=== PATIENT | male | born 1980 | race Caucasian/White ===

== ENCOUNTER 2019-02-23 18:53 | Emergency (ER) | payer OTHER | END 2019-02-23 19:41 | disposition left against medical advice (07) | LOC: ERS 18:53 | DX: Z53.21 Procedure and treatment not carried out due to patient leaving prior to being seen by health care provider (principal) ==

== ENCOUNTER 2020-05-21 21:40 | Inpatient (IN) | payer OTHER ==
[~2020-05-21 21:40] MED LIST: Iopamidol-370 76% 500 ML 1 ML ONE
[2020-05-21] MEDS ORDERED: Digoxin 0.5 MG/2 ML AMP ONE (22:03)
[2020-05-21] MEDS ORDERED: HYDROmorphone 0.5 MG/0.5 ML SYRINGE ONE ×3 (22:03→22:46)
[2020-05-21 22:17] LABS: Prothrombin Time 12.7 sec (12.0-14.7)
[2020-05-21 22:18] LABS: PTT 20.2 sec (22.9-36.1)
[2020-05-21] MEDS ORDERED: Boostrix 0.5 ML VIAL ONE (22:18)
[2020-05-21] MEDS ORDERED: Cefepime 2 GM VIAL ONE (22:18)
[2020-05-21 22:22] LABS: Hemoglobin 10.6 g/dL (14.0-18.0); Mean Corpuscular HGB CONC 33.8 g/dL (32.0-36.0); Mean Corpuscular Hemoglobin 32.3 pg (27.0-31.0); Mean Corpuscular Volume 95.6 fL (78.0-98.0); Mean Platelet Volume 7.8 fL (7.4-10.4); Platelet Count 197 thou/uL (130-400); RBC Distribution Width 11.8 % (11.5-14.5); Red Blood Cell (RBC) Count 3.29 mill/uL (4.70-6.10); White Blood Cell (WBC) Count 13.6 thou/uL (4.8-10.8)
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
[2020-05-21 22:29] LABS: Acetaminophen Less than 6.0 mcg/mL (10.0-30.0); Alcohol 67 mg/dL (Less than 10); CK (CPK) 94 U/L (30-200); Salicylate Less than 8.0 mg/dL (15.0-30.0)
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
[2020-05-21 22:34] LABS: Magnesium 0.7 mg/dL (1.6-2.6)
[2020-05-21 22:35] LABS: Band 2 % (5-11); Eosinophils 1 % (0-10); Lymphocytes 52 % (21-51); MDiff Complete? YES; Monocytes 5 % (0-10); Neutrophil 40 % (42-75); Platelet Morphology Comment Appears Adequate
[2020-05-21 22:47] LABS: ALT (SGPT) 38 U/L (8-55); AST (SGOT) 26 U/L (5-34); Albumin 4.5 g/dL (3.5-5.0); Alkaline Phosphatase 43 U/L (40-110); Anion Gap 19 mmol/L (10-20); BUN (Urea Nitrogen) 15 mg/dL (8.9-20.6); Bilirubin, Total 0.4 mg/dL (0.2-1.2); Calc. Creatinine Clearance 0 mL/min (70-130); Calcium 8.6 mg/dL (7.8-10.44); Carbon Dioxide 17 mmol/L (22-29); Chloride 105 mmol/L (98-107); Estimated GFR-MDRD 62; Globulin 2.2 g/dL (2.4-3.5); Glucose 148 mg/dL (70-105); Potassium 3.2 mmol/L (3.5-5.1); Protein, Total 6.7 g/dL (6.0-8.3); Sodium 138 mmol/L (136-145)
[2020-05-21] MEDS ORDERED: Lorazepam 2 MG/ML VIAL ONE (23:37)
[2020-05-21] MEDS ORDERED: Ketamine 50 MG/ML (10ML VIAL) ONE (23:39)
[2020-05-22] MEDS ORDERED: Lidocaine 1% PF 5 ML VIAL ONE ×2 (00:09→11:07)
[2020-05-22 00:33] LABS: Bilirubin Negative (Negative); Blood, Urine Negative (Negative); Clarity Clear (Clear); Glucose, Urine (Dipstick) Normal (Negative); Ketone, Urine Negative (Negative); Leukocyte Negative Leu/uL (Negative); Nitrite Negative (Negative); Protein, Urine (Dipstick) Negative (Neg-Trace); Urobilinogen Normal mg/dL (Less than 2); pH, Urine 5.5 (5.0-9.0)
[2020-05-22 00:35] LABS: Amphetamine Not Detected (NotDetected); Barbiturates Screen Not Detected (NotDetected); Benzodiazepine Screen Not Detected (NotDetected); Cocaine Metabolite Screen Not Detected (NotDetected); Medtox Control Line Valid? VALID (VALID); Medtox Reader # READER 4; Methadone Not Detected (NotDetected); Methamphetamine Not Detected (NotDetected); Opiate Screen Detected (NotDetected); Oxycodone Screen Not Detected (NotDetected); Phencyclidine (PCP) Not Detected (NotDetected); THC/Cannabinoid Screen Not Detected (NotDetected); Tricyclic Screen Not Detected (NotDetected)
[2020-05-22 00:36] LABS: Specific Gravity, Urine 1.057 (1.002-1.036)
[2020-05-22] MEDS ORDERED: Midazolam HCl 2 mg/2 ml Vial ONE ×2 (01:18→13:53)
[2020-05-22] MEDS ORDERED: Ketamine 50 MG/ML (10ML VIAL) ONE (01:28)
[2020-05-22] MEDS ORDERED: Dextrose 50% Abboject 50 ML SYRINGE SLOW IVP PRN (02:22)
[2020-05-22] MEDS ORDERED: hydrALAZINE 20 MG/ML VIAL SLOW IVP PRN (02:22)
[2020-05-22] MEDS ORDERED: Ondansetron PF 4 MG/2 ML Vial IVP PRN (02:22)
[2020-05-22] MEDS ORDERED: Dextrose 5% in Water 1,000 ML IV PRN (02:22)
[2020-05-22] MEDS ORDERED: Morphine 2 MG/ML VIAL SLOW IVP PRN ×2 (02:22→19:21)
[2020-05-22] MEDS ORDERED: Magnesium Sulfate 4 GM in Sodium Chloride 0.9% 250 ML 250 ML IVPB SCH (03:00)
[2020-05-22] MEDS ORDERED: Potassium Phosphate 30 MMOL in Sodium Chloride 0.9% 500 ML IVPB SCH (03:00)
[2020-05-22] MEDS: Acetaminophen 500 MG TAB PO SCH ×4 (03:25→23:16)
[2020-05-22] MEDS: traMADol HCl 50 MG TAB PO SCH ×3 (03:25→18:34)
[2020-05-22] MEDS: Sodium Chloride 0.9% 1,000 ML IV SCH ×3 (03:26→22:15)
[2020-05-22 03:56] VITALS: BMI 34.7
[2020-05-22] MEDS: Cyclobenzaprine 10 MG TAB PO PRN (04:32)
[2020-05-22 05:07] LABS: Phosphorus 2.3 mg/dL (2.3-4.7)
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
[2020-05-22] MEDS: Ketorolac Tromethamine 30 MG/ML VIAL IVP SCH ×4 (05:43→23:16)
[2020-05-22] MEDS: Oxazepam 10 MG CAP PO SCH ×3 (05:44→21:32)
[2020-05-22 06:57] LABS: Hemoglobin 14.3 g/dL (14.0-18.0); Mean Corpuscular HGB CONC 32.3 g/dL (32.0-36.0); Mean Corpuscular Hemoglobin 30.2 pg (27.0-31.0); Mean Corpuscular Volume 93.6 fL (78.0-98.0); Mean Platelet Volume 7.9 fL (7.4-10.4); Platelet Count 235 thou/uL (130-400); RBC Distribution Width 12.1 % (11.5-14.5); Red Blood Cell (RBC) Count 4.72 mill/uL (4.70-6.10); White Blood Cell (WBC) Count 10.9 thou/uL (4.8-10.8)
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
--- NOTE | 2020-05-22 07:34 | RAD ---
LEFT WRIST 2 VIEWS: DATE: 05/21/2020. HISTORY: Injury, trauma, and pain. FINDINGS: No displaced fracture or dislocation. No widening of the scapholunate interval. IMPRESSION: No acute fracture or evidence of dislocation. If symptoms persist, followup imaging in 7-10 days wit h a full left wrist series advised. Evaluation of the left wrist is limited as no lateral view is pr ovided. Only 2 views are provided on this exam. POS: OFF
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
[2020-05-22] MEDS: Folic Acid 1 MG TAB PO SCH (08:04)
[2020-05-22] MEDS: Multivitamin W/ Minerals 1 TAB PO SCH (08:04)
[2020-05-22] MEDS: Senokot S 8.6-50 MG TAB PO SCH ×2 (08:04→21:22)
[2020-05-22] MEDS: Bacitracin 1 PK TOP SCH ×3 (08:04→21:23)
[2020-05-22] MEDS: Polyethylene Glycol 3350 17 GM Packet PO SCH (08:04)
[2020-05-22] MEDS: Silver Sulfadiazine 50 GM TUBE TOP SCH ×2 (08:05→21:23)
[2020-05-22] MEDS: Thiamine 100 MG TAB PO SCH (08:05)
[2020-05-22] MEDS: Gabapentin 300 MG CAP PO SCH ×3 (08:05→21:23)
[2020-05-22 08:11] LABS: Lactic Acid 2.9 mmol/L (0.5-2.2)
[2020-05-22] MEDS ORDERED: Sodium Chloride 0.9% 1,000 ML IV SCH (08:15)
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
[2020-05-22] MEDS: Morphine 4 MG/ML VIAL SLOW IVP PRN ×2 (09:38→20:27)
[2020-05-22] MEDS ORDERED: PROPOFOL 200 MG/20 ML VIAL ONE (11:07)
[2020-05-22] MEDS ORDERED: Dexamethasone 20 MG/5 ML VIAL ONE (11:07)
[2020-05-22] MEDS ORDERED: Ondansetron PF 4 MG/2 ML Vial ONE (11:07)
[2020-05-22] MEDS ORDERED: PHENYLEPHRINE-NS 100 MCG/ML 10 ML SYRINGE ONE (11:07)
[2020-05-22 12:50] LABS: SARS-CoV-2 MS2 Positive; SARS-CoV-2 N Gene Negative; SARS-CoV-2 S Gene Negative; SARS-CoV-2 by NAA Not Detected (NotDetected); SARS-CoV-2 orf1ab Negative
[2020-05-22] MEDS ORDERED: Fentanyl 100 MCG/2 ML VIAL ONE ×5 (13:53→19:41)
[2020-05-22] MEDS ORDERED: Lidocaine 1% (PF) 30 ML VIAL ONE (15:16)
[2020-05-22] MEDS ORDERED: Bupivacaine 0.25% HCL 30 ML VIAL ONE (15:26)
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
[2020-05-22] MEDS ORDERED: Promethazine HCl 25 MG/ML VIAL IM PRN (17:26)
[2020-05-22] MEDS ORDERED: HYDROmorphone 2 MG/ML VIAL SLOW IVP PRN (17:26)
[2020-05-22] MEDS ORDERED: Promethazine HCl 25 MG/ML VIAL SLOW IVP PRN (17:26)
[2020-05-22] MEDS ORDERED: Ondansetron HCl/PF 4 MG/2 ML Vial IVP PRN (17:26)
[2020-05-22] MEDS ORDERED: HYDROcodone/Acetaminophen 5/325 mg Tablet PO PRN (19:30)
[2020-05-22] MEDS ORDERED: HYDROmorphone 0.5 MG/0.5 ML SYRINGE ONE (19:31)
[2020-05-22] MEDS: HYDROcodone/Acetaminophen 5/325 mg Tablet PO PRN (20:28)
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
[2020-05-22] MEDS ORDERED: ceFAZolin 1 GM/D5W 1 GM in Premix Bag 1 BAG IVPB SCH (22:00)
[2020-05-22] MEDS: CEFAZOLIN 2 GM in Premix Bag 1 BAG IVPB SCH (23:15)
[2020-05-23] MEDS: Sodium Chloride 0.9% 1,000 ML IV SCH ×3 (04:36→23:20)
[2020-05-23] MEDS: Oxazepam 10 MG CAP PO SCH ×3 (05:30→20:50)
[2020-05-23] MEDS: HYDROcodone/Acetaminophen 5/325 mg Tablet PO PRN ×4 (05:31→23:20)
[2020-05-23] MEDS: Ketorolac Tromethamine 30 MG/ML VIAL IVP SCH (05:31)
[2020-05-23] MEDS: Acetaminophen 500 MG TAB PO SCH ×2 (06:01→11:38)
[2020-05-23] MEDS: CEFAZOLIN 2 GM in Premix Bag 1 BAG IVPB SCH (08:21)
[2020-05-23] MEDS: Multivitamin W/ Minerals 1 TAB PO SCH (08:24)
[2020-05-23] MEDS: Bacitracin 1 PK TOP SCH ×3 (08:24→21:00)
[2020-05-23] MEDS: Polyethylene Glycol 3350 17 GM Packet PO SCH (08:24)
[2020-05-23] MEDS: Gabapentin 300 MG CAP PO SCH ×3 (08:25→20:50)
[2020-05-23] MEDS: Folic Acid 1 MG TAB PO SCH (08:25)
[2020-05-23] MEDS: Famotidine 20 MG TAB PO SCH ×2 (08:25→20:49)
[2020-05-23] MEDS: Senokot S 8.6-50 MG TAB PO SCH ×3 (08:25→20:50)
[2020-05-23] MEDS: Thiamine 100 MG TAB PO SCH (08:26)
[2020-05-23] MEDS: Silver Sulfadiazine 50 GM TUBE TOP SCH ×2 (08:26→21:04)
[2020-05-23] MEDS: Morphine 4 MG/ML VIAL SLOW IVP PRN ×2 (08:51→15:02)
[2020-05-23 09:20] LABS: #Lymphocytes 1.1 thou/uL (1.20-3.40); #Monocytes 0.6 thou/uL (0.11-0.59); #Neutrophils 4.8 thou/uL (1.40-6.50); %Lymphocytes 17.5 % (21.0-51.0); %Monocytes 8.5 % (0.0-10.0); %Neutrophils 73.9 % (42.0-75.0); Hemoglobin 12.1 g/dL (14.0-18.0); Mean Corpuscular HGB CONC 32.5 g/dL (32.0-36.0); Mean Corpuscular Hemoglobin 31.8 pg (27.0-31.0); Mean Corpuscular Volume 97.9 fL (78.0-98.0); Mean Platelet Volume 7.8 fL (7.4-10.4); Platelet Count 185 thou/uL (130-400); RBC Distribution Width 12.2 % (11.5-14.5); Red Blood Cell (RBC) Count 3.81 mill/uL (4.70-6.10); White Blood Cell (WBC) Count 6.4 thou/uL (4.8-10.8)
[2020-05-23 09:53] LABS: Anion Gap 14 mmol/L (10-20); BUN (Urea Nitrogen) 13 mg/dL (8.9-20.6); Calc. Creatinine Clearance 145 mL/min (70-130); Calcium 7.7 mg/dL (7.8-10.44); Carbon Dioxide 21 mmol/L (22-29); Chloride 104 mmol/L (98-107); Estimated GFR-MDRD 79; Glucose 132 mg/dL (70-105); Magnesium 2.3 mg/dL (1.6-2.6); Phosphorus 1.6 mg/dL (2.3-4.7); Potassium 4.7 mmol/L (3.5-5.1); Sodium 134 mmol/L (136-145)
--- NOTE | 2020-05-23 12:22 | EKG ---
Test Reason : Blood Pressure : / mmHG Vent. Rate : 087 BPM Atrial Rate : 087 BPM P-R Int : 160 ms QRS Dur : 074 ms QT Int : 366 ms P-R-T Axes : 074 060 034 degrees QTc Int : 440 ms Normal sinus rhythm Nonspecific T wave abnormality Abnormal ECG Confirmed by EASTON INMAN ([id number]), scientific editor EMANUEL LORENZ ([id number]) on 05/23/2020 12:22:06 PM Referred By: Confirmed By:EASTON INMAN
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
[2020-05-23] MEDS: Piperacillin/Tazobactam 4.5 GM in Sodium Chloride 0.9% 100 ML IVPB SCH ×2 (15:36→21:00)
[2020-05-23] MEDS ORDERED: Morphine 4 MG/ML VIAL SLOW IVP PRN (16:33)
[2020-05-23] MEDS ORDERED: traMADol HCl 50 MG TAB PO PRN (16:33)
[2020-05-23] MEDS: Ibuprofen 200 MG TAB PO SCH ×2 (17:31→20:50)
[2020-05-23] MEDS: traMADol HCl 50 MG TAB PO SCH ×2 (17:32→23:21)
[2020-05-23] MEDS: Acetaminophen 325 MG TAB PO SCH ×2 (17:37→23:20)
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
[2020-05-23] MEDS: cloNIDine 0.1 MG TAB PO SCH (20:50)
[2020-05-24] MEDS: Sodium Chloride 0.9% 1,000 ML IV SCH (05:32)
[2020-05-24] MEDS: Piperacillin/Tazobactam 4.5 GM in Sodium Chloride 0.9% 100 ML IVPB SCH ×3 (05:35→21:35)
[2020-05-24] MEDS: Ibuprofen 200 MG TAB PO SCH ×3 (05:36→18:51)
[2020-05-24] MEDS: Acetaminophen 325 MG TAB PO SCH ×3 (05:37→18:51)
[2020-05-24] MEDS: Oxazepam 10 MG CAP PO SCH ×3 (05:37→21:08)
[2020-05-24] MEDS: traMADol HCl 50 MG TAB PO SCH ×3 (05:37→18:52)
[2020-05-24] MEDS: HYDROcodone/Acetaminophen 5/325 mg Tablet PO PRN ×3 (06:18→16:52)
[2020-05-24 07:46] LABS: #Eosinphils 0.1 thou/uL (0.0-0.7); #Lymphocytes 1.6 thou/uL (1.20-3.40); #Monocytes 0.3 thou/uL (0.11-0.59); %Basophils 0.4 % (0.0-1.0); %Eosinophils 1.4 % (0.0-10.0); %Lymphocytes 40.6 % (21.0-51.0); %Neutrophils 49.7 % (42.0-75.0); Hemoglobin 10.3 g/dL (14.0-18.0); Mean Corpuscular HGB CONC 32.5 g/dL (32.0-36.0); Mean Corpuscular Hemoglobin 31.4 pg (27.0-31.0); Mean Corpuscular Volume 96.8 fL (78.0-98.0); Mean Platelet Volume 8.3 fL (7.4-10.4); Platelet Count 160 thou/uL (130-400); RBC Distribution Width 12.1 % (11.5-14.5); Red Blood Cell (RBC) Count 3.27 mill/uL (4.70-6.10)
[2020-05-24 07:47] LABS: Anion Gap 12 mmol/L (10-20); BUN (Urea Nitrogen) 12 mg/dL (8.9-20.6); Calc. Creatinine Clearance 159 mL/min (70-130); Calcium 7.8 mg/dL (7.8-10.44); Carbon Dioxide 24 mmol/L (22-29); Chloride 106 mmol/L (98-107); Estimated GFR-MDRD 88; Glucose 126 mg/dL (70-105); Potassium 4.1 mmol/L (3.5-5.1); Sodium 138 mmol/L (136-145)
[2020-05-24 07:56] LABS: Phosphorus 1.5 mg/dL (2.3-4.7)
[2020-05-24] MEDS: Polyethylene Glycol 3350 17 GM Packet PO SCH (08:55)
[2020-05-24] MEDS: cloNIDine 0.1 MG TAB PO SCH ×2 (08:55→21:11)
[2020-05-24] MEDS: Folic Acid 1 MG TAB PO SCH (08:55)
[2020-05-24] MEDS: Senokot S 8.6-50 MG TAB PO SCH ×2 (08:56→21:08)
[2020-05-24] MEDS: Silver Sulfadiazine 50 GM TUBE TOP SCH ×2 (08:56→21:09)
[2020-05-24] MEDS: Multivitamin W/ Minerals 1 TAB PO SCH (08:56)
[2020-05-24] MEDS: Famotidine 20 MG TAB PO SCH ×2 (08:56→21:08)
[2020-05-24] MEDS: Thiamine 100 MG TAB PO SCH (08:56)
[2020-05-24] MEDS: Gabapentin 300 MG CAP PO SCH ×3 (08:57→21:08)
[2020-05-24] MEDS: Bacitracin 1 PK TOP SCH ×3 (08:57→21:09)
[2020-05-24] MEDS: HYDROcodone/Acetaminophen 5/325 mg Tablet PO SCH ×4 (10:57→21:07)
[2020-05-24] MEDS ORDERED: Sodium Phosphate 45 MMOL in Sodium Chloride 0.9% 250 ML 250 ML IVPB SCH (12:30)
[2020-05-24] MEDS: Heparin 5,000 UNITS/ML VIAL SC SCH ×2 (14:10→21:08)
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
[2020-05-25] MEDS: Acetaminophen 325 MG TAB PO SCH ×4 (00:28→17:34)
[2020-05-25] MEDS: Ibuprofen 200 MG TAB PO SCH ×4 (00:29→17:34)
[2020-05-25] MEDS: traMADol HCl 50 MG TAB PO SCH ×4 (00:30→17:34)
[2020-05-25] MEDS: HYDROcodone/Acetaminophen 5/325 mg Tablet PO SCH ×6 (00:36→21:27)
[2020-05-25] MEDS: Cyclobenzaprine 10 MG TAB PO PRN (04:16)
[2020-05-25 05:06] LABS: #Eosinphils 0.1 thou/uL (0.0-0.7); #Lymphocytes 1.5 thou/uL (1.20-3.40); #Monocytes 0.3 thou/uL (0.11-0.59); #Neutrophils 2.1 thou/uL (1.40-6.50); %Basophils 0.2 % (0.0-1.0); %Lymphocytes 36.8 % (21.0-51.0); %Monocytes 7.7 % (0.0-10.0); %Neutrophils 53.3 % (42.0-75.0); Hemoglobin 10.4 g/dL (14.0-18.0); Mean Corpuscular Hemoglobin 31.8 pg (27.0-31.0); Mean Corpuscular Volume 96.4 fL (78.0-98.0); Mean Platelet Volume 8.1 fL (7.4-10.4); Platelet Count 196 thou/uL (130-400); RBC Distribution Width 12.1 % (11.5-14.5); Red Blood Cell (RBC) Count 3.28 mill/uL (4.70-6.10)
[2020-05-25 05:36] LABS: Anion Gap 12 mmol/L (10-20); BUN (Urea Nitrogen) 11 mg/dL (8.9-20.6); Calc. Creatinine Clearance 152 mL/min (70-130); Calcium 8.1 mg/dL (7.8-10.44); Carbon Dioxide 22 mmol/L (22-29); Chloride 105 mmol/L (98-107); Estimated GFR-MDRD 84; Glucose 120 mg/dL (70-105); Magnesium 1.9 mg/dL (1.6-2.6); Phosphorus 2.3 mg/dL (2.3-4.7); Potassium 4.2 mmol/L (3.5-5.1); Sodium 135 mmol/L (136-145)
[2020-05-25] MEDS: Piperacillin/Tazobactam 4.5 GM in Sodium Chloride 0.9% 100 ML IVPB SCH ×3 (05:54→21:44)
[2020-05-25] MEDS: Senokot S 8.6-50 MG TAB PO SCH ×2 (09:26→21:24)
[2020-05-25] MEDS: Polyethylene Glycol 3350 17 GM Packet PO SCH (09:26)
[2020-05-25] MEDS: Multivitamin W/ Minerals 1 TAB PO SCH (09:26)
[2020-05-25] MEDS: Thiamine 100 MG TAB PO SCH (09:26)
[2020-05-25] MEDS: Famotidine 20 MG TAB PO SCH ×2 (09:27→21:31)
[2020-05-25] MEDS: Folic Acid 1 MG TAB PO SCH (09:27)
[2020-05-25] MEDS: cloNIDine 0.1 MG TAB PO SCH ×2 (09:27→21:24)
[2020-05-25] MEDS: Gabapentin 300 MG CAP PO SCH ×3 (10:02→21:27)
[2020-05-25] MEDS: Oxazepam 10 MG CAP PO SCH ×2 (10:51→21:27)
[2020-05-25] MEDS: Bacitracin 1 PK TOP SCH ×3 (11:22→21:27)
[2020-05-25] MEDS: Silver Sulfadiazine 50 GM TUBE TOP SCH ×2 (11:23→21:32)
[2020-05-25] MEDS ORDERED: PROPOFOL 200 MG/20 ML VIAL ONE (12:14)
[2020-05-25] MEDS ORDERED: Ketorolac Tromethamine 30 MG/ML VIAL ONE (12:14)
[2020-05-25] MEDS ORDERED: Lidocaine 1% PF 5 ML VIAL ONE (12:14)
[2020-05-25] MEDS ORDERED: Glycopyrrolate 0.2 MG/ML 5 ML SYRINGE ONE (12:14)
[2020-05-25] MEDS ORDERED: Dexamethasone 20 MG/5 ML VIAL ONE (12:14)
[2020-05-25] MEDS ORDERED: Rocuronium Bromide 10 MG/ML (10ML VIAL) ONE (12:14)
[2020-05-25] MEDS ORDERED: Ondansetron PF 4 MG/2 ML Vial ONE (12:14)
[2020-05-25] MEDS ORDERED: Fentanyl 100 MCG/2 ML VIAL ONE ×3 (14:03→14:30)
[2020-05-25] MEDS ORDERED: Bupivacaine 0.25% HCL 30 ML VIAL ONE (14:09)
[2020-05-25] MEDS ORDERED: Bacitracin Zinc Ointment 30 gm TUBE ONE (14:09)
[2020-05-25] MEDS ORDERED: Lidocaine 1% w/Epinephrine 1:100K 20 ML VIAL ONE (14:09)
[2020-05-25] MEDS ORDERED: HYDROmorphone 0.5 MG/0.5 ML SYRINGE ONE (14:16)
[2020-05-25] MEDS ORDERED: Midazolam HCl 2 mg/2 ml Vial ONE (14:30)
[2020-05-25] MEDS ORDERED: SUGAMMADEX SODIUM 500 MG/5 ML VIAL ONE (15:56)
[2020-05-25] MEDS ORDERED: Morphine 4 MG/ML VIAL SLOW IVP PRN ×2 (17:24→21:08)
[2020-05-25] MEDS ORDERED: HYDROcodone/Acetaminophen 5/325 mg Tablet PO PRN ×2 (17:25→21:10)
[2020-05-25] MEDS: Heparin 5,000 UNITS/ML VIAL SC SCH (21:28)
[2020-05-26] MEDS: traMADol HCl 50 MG TAB PO SCH ×5 (00:59→23:58)
[2020-05-26] MEDS: Acetaminophen 325 MG TAB PO SCH ×4 (00:59→18:01)
[2020-05-26] MEDS: Ibuprofen 200 MG TAB PO SCH ×5 (01:00→23:57)
[2020-05-26] MEDS: HYDROcodone/Acetaminophen 5/325 mg Tablet PO SCH ×6 (01:00→21:14)
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
[2020-05-26] MEDS: Piperacillin/Tazobactam 4.5 GM in Sodium Chloride 0.9% 100 ML IVPB SCH ×3 (06:02→21:30)
[2020-05-26 06:55] LABS: #Lymphocytes 1.2 thou/uL (1.20-3.40); #Monocytes 0.3 thou/uL (0.11-0.59); #Neutrophils 3.3 thou/uL (1.40-6.50); %Basophils 0.1 % (0.0-1.0); %Eosinophils 0.2 % (0.0-10.0); %Lymphocytes 24.6 % (21.0-51.0); %Monocytes 6.6 % (0.0-10.0); %Neutrophils 68.4 % (42.0-75.0); Hemoglobin 10.7 g/dL (14.0-18.0); Mean Corpuscular HGB CONC 32.2 g/dL (32.0-36.0); Mean Corpuscular Hemoglobin 31.4 pg (27.0-31.0); Mean Corpuscular Volume 97.5 fL (78.0-98.0); Platelet Count 262 thou/uL (130-400); RBC Distribution Width 11.9 % (11.5-14.5); Red Blood Cell (RBC) Count 3.42 mill/uL (4.70-6.10); White Blood Cell (WBC) Count 4.8 thou/uL (4.8-10.8)
[2020-05-26 07:13] LABS: Anion Gap 13 mmol/L (10-20); BUN (Urea Nitrogen) 11 mg/dL (8.9-20.6); Calc. Creatinine Clearance 151 mL/min (70-130); Calcium 8.7 mg/dL (7.8-10.44); Carbon Dioxide 25 mmol/L (22-29); Chloride 104 mmol/L (98-107); Estimated GFR-MDRD 83; Glucose 137 mg/dL (70-105); Magnesium 2.1 mg/dL (1.6-2.6); Sodium 137 mmol/L (136-145)
[2020-05-26 07:19] LABS: Phosphorus 3.2 mg/dL (2.3-4.7)
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
[2020-05-26] MEDS: Senokot S 8.6-50 MG TAB PO SCH ×2 (09:06→21:16)
[2020-05-26] MEDS: Polyethylene Glycol 3350 17 GM Packet PO SCH (09:07)
[2020-05-26] MEDS: Folic Acid 1 MG TAB PO SCH (09:07)
[2020-05-26] MEDS: Thiamine 100 MG TAB PO SCH (09:08)
[2020-05-26] MEDS: Famotidine 20 MG TAB PO SCH ×2 (09:08→21:15)
[2020-05-26] MEDS: Oxazepam 10 MG CAP PO SCH ×2 (09:09→20:20)
[2020-05-26] MEDS: Gabapentin 300 MG CAP PO SCH ×3 (09:09→20:21)
[2020-05-26] MEDS: cloNIDine 0.1 MG TAB PO SCH (09:09)
[2020-05-26] MEDS: Bacitracin 1 PK TOP SCH ×3 (09:09→20:19)
[2020-05-26] MEDS: Multivitamin W/ Minerals 1 TAB PO SCH (09:09)
[2020-05-26] MEDS: Heparin 5,000 UNITS/ML VIAL SC SCH ×3 (09:09→21:31)
--- NOTE | 2020-05-26 09:26 | PRG ---
DATE OF SERVICE: 05/25/2020 SUBJECTIVE: The patient is seen today postoperative day #3 status post incision, drainage, and debridement of left elbow and application of a VAC dressing as well as amputation of left ring finger and splinting for left small finger phalanx fracture. The patient's pain is relatively well controlled. He denies any fevers. He denies any numbness or tingling in the fingers. PHYSICAL EXAMINATION: There is a bandage over the left upper extremity. The patient appears to be comfortable and lying in bed. ASSESSMENT AND PLAN: Postoperative day #3 status incision and drainage, debridement, application of wound VAC dressing of left elbow as well as amputation of left right finger and splinting of left small finger for treatment of left phalangeal fracture. Today, all risks and goals associated with surgery were discussed by me with the patient. The patient's daughter was also present. This is plan to take back for VAC dressing change as well as further debridement and washout of this left elbow wound, potentially his right hand as well. He voiced understanding of all risks and goals associated with surgery and agreed to proceed with surgery today. He will continue to remain admitted to the Trauma Service. He will continue to receive IV antibiotics and obtain medications. Job ID: [id number]
--- NOTE | 2020-05-26 09:45 | OP ---
DATE OF PROCEDURE: 05/25/2020 PREOPERATIVE DIAGNOSIS: Full thickness skin loss and open wound of left elbow. POSTOPERATIVE DIAGNOSIS: Full thickness skin loss and open wound of left elbow. PROCEDURE: Plan to take back for further incision and debridement and washout of left elbow wound as well as change in VAC dressing. ANESTHESIA: General. ESTIMATED BLOOD LOSS: Less than 10 mL. FINDINGS: There was some murky type fluid within the wound overlying the left elbow and this was sent for culture and sensitivity. There was no exposed bone. Muscle appeared to be beefy red with good vascularity. Some of the skin edges appeared to be somewhat necrotic and they were trimmed back to good bleeding tissue. I did not appreciate any jose pus within the wound. SPECIMEN: Culture and sensitivities. IMPLANTS: VAC dressing. CONDITION: Stable. INDICATIONS FOR PROCEDURE: The patient is a 40-year-old male, who was taken for surgery today for a plan to take back and VAC exchange under general anesthesia as well as further incision and drainage and debridement. He consented for surgery today after all risks and goals were discussed by me with the patient and his daughter who was present. The patient has been receiving scheduled antibiotics. DESCRIPTION OF PROCEDURE: He was brought back to the operating room, placed supine on the operating room table. General anesthesia was induced by the anesthesia team. The wound care team was available for the VAC exchange. I was able to remove the VAC dressing. I also examined the patient's right hand and left hand wounds. The right hand wounds look like they are healing well without clinical sign of infection. There was some mild drainage coming from the left ring finger stump and this was irrigated well and one of the sutures was removed to allow complete drainage of the fluid. It appeared to be blood tinged in color and then my attention was directed to the left forearm and left elbow wound. I debrided some of the skin edges that look necrotic. Good bleeding tissue was encountered. The muscle appeared to be well vascularized and beefy red and looked to be red in appearance without any areas of muscle necrosis. There was no exposed bone. There was mild murky fluid prior to the washout, this was sent for the cultures. I irrigate thoroughly using pulse lavage film library clerk and I then had the wound care team exchange the VAC dressing and placing the new VAC dressing over both left elbow wound and the left forearm wound. The left arm was splinted to protect the left small finger phalanx fracture. The patient tolerated the procedure well. The right arm was also re-dressed in the OR as well. He was extubated and transported back to the recovery area in stable condition. He will continue to remain admitted to the trauma service. He will continue with his broad spectrum IV antibiotics and pain control. We will plan for another scheduled take back for repeat washout debridement of his left elbow on Monday. Job ID: [id number]
[2020-05-26] MEDS ORDERED: cloNIDine 0.2 MG TAB PO PRN (12:45)
[2020-05-26] MEDS: Silver Sulfadiazine 50 GM TUBE TOP SCH ×2 (13:00→21:17)
[2020-05-26] MEDS: Saccharomyces boulardii 250 MG CAP PO SCH (20:19)
[2020-05-26] MEDS: Lisinopril 5 MG TAB PO SCH (21:15)
[2020-05-27] MEDS ORDERED: Sodium Chloride 0.9% 1,000 ML IV SCH (00:01)
[2020-05-27] MEDS: Acetaminophen 325 MG TAB PO SCH ×4 (00:01→19:05)
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
[2020-05-27] MEDS: Piperacillin/Tazobactam 4.5 GM in Sodium Chloride 0.9% 100 ML IVPB SCH ×2 (05:06→14:42)
[2020-05-27] MEDS: HYDROcodone/Acetaminophen 5/325 mg Tablet PO SCH ×6 (05:12→14:43)
[2020-05-27] MEDS: traMADol HCl 50 MG TAB PO SCH ×3 (05:12→19:05)
[2020-05-27 05:41] LABS: Anion Gap 12 mmol/L (10-20); BUN (Urea Nitrogen) 13 mg/dL (8.9-20.6); Calc. Creatinine Clearance 142 mL/min (70-130); Calcium 8.4 mg/dL (7.8-10.44); Carbon Dioxide 24 mmol/L (22-29); Chloride 106 mmol/L (98-107); Estimated GFR-MDRD 77; Glucose 133 mg/dL (70-105); Magnesium 1.7 mg/dL (1.6-2.6); Phosphorus 2.8 mg/dL (2.3-4.7); Potassium 4.2 mmol/L (3.5-5.1); Sodium 138 mmol/L (136-145)
[2020-05-27 05:59] LABS: Band 15 % (5-11); Eosinophils 3 % (0-10); Hemoglobin 9.5 g/dL (14.0-18.0); Hypochromia SLIGHT = 6-15 cells (100X) (0-5/hpf); Lymphocytes 43 % (21-51); MDiff Complete? YES; Mean Corpuscular HGB CONC 31.7 g/dL (32.0-36.0); Mean Corpuscular Hemoglobin 30.7 pg (27.0-31.0); Mean Corpuscular Volume 96.8 fL (78.0-98.0); Mean Platelet Volume 7.5 fL (7.4-10.4); Monocytes 2 % (0-10); Neutrophil 37 % (42-75); Platelet Count 273 thou/uL (130-400); Platelet Morphology Comment Appears Adequate; RBC Distribution Width 12.2 % (11.5-14.5); Red Blood Cell (RBC) Count 3.09 mill/uL (4.70-6.10); White Blood Cell (WBC) Count 5.6 thou/uL (4.8-10.8)
[2020-05-27] MEDS: Ibuprofen 200 MG TAB PO SCH ×3 (06:22→19:05)
[2020-05-27] MEDS: Bacitracin 1 PK TOP SCH ×3 (08:32→21:45)
[2020-05-27] MEDS: Folic Acid 1 MG TAB PO SCH (08:32)
[2020-05-27] MEDS: Thiamine 100 MG TAB PO SCH ×2 (08:33→09:21)
[2020-05-27] MEDS: Lisinopril 5 MG TAB PO SCH (08:33)
[2020-05-27] MEDS: Saccharomyces boulardii 250 MG CAP PO SCH ×2 (08:33→21:33)
[2020-05-27] MEDS: Gabapentin 300 MG CAP PO SCH ×4 (08:34→21:33)
[2020-05-27] MEDS: Senokot S 8.6-50 MG TAB PO SCH ×2 (08:34→21:45)
[2020-05-27] MEDS: Famotidine 20 MG TAB PO SCH ×2 (08:42→21:33)
[2020-05-27] MEDS: Heparin 5,000 UNITS/ML VIAL SC SCH ×3 (08:42→21:31)
[2020-05-27] MEDS: Silver Sulfadiazine 50 GM TUBE TOP SCH ×2 (08:43→21:45)
[2020-05-27] MEDS: Oxazepam 10 MG CAP PO SCH ×2 (08:43→21:33)
[2020-05-27] MEDS: Polyethylene Glycol 3350 17 GM Packet PO SCH (08:43)
[2020-05-27] MEDS: Multivitamin W/ Minerals 1 TAB PO SCH (08:43)
[2020-05-27] MEDS ORDERED: Lisinopril 5 MG TAB PO SCH (08:45)
[2020-05-27] MEDS ORDERED: Lisinopril 20 MG TAB PO SCH (09:00)
[2020-05-27] MEDS ORDERED: Magnesium 2 GM/50 ML 3 GM in Premix Bag 1 BAG IVPB SCH (09:00)
[2020-05-27] MEDS: Lisinopril 20 MG TAB PO SCH (09:21)
[2020-05-27] MEDS ORDERED: Fentanyl 100 MCG/2 ML VIAL ONE ×4 (12:03→13:29)
[2020-05-27] MEDS ORDERED: Promethazine HCl 25 MG/ML VIAL SLOW IVP PRN (12:20)
[2020-05-27] MEDS ORDERED: HYDROmorphone 2 MG/ML VIAL SLOW IVP PRN (12:20)
[2020-05-27] MEDS ORDERED: Ondansetron HCl/PF 4 MG/2 ML Vial IVP PRN (12:20)
[2020-05-27] MEDS ORDERED: PACU-Morphine 4MG/ML VIAL SLOW IVP PRN (12:20)
[2020-05-27] MEDS ORDERED: Promethazine HCl 25 MG/ML VIAL IM PRN (12:20)
[2020-05-27] MEDS ORDERED: Meperidine HCl/PF 25 MG/ML VIAL SLOW IVP PRN (12:20)
[2020-05-27] MEDS ORDERED: Morphine Sulfate 2 MG/ML SYRINGE SLOW IVP PRN (12:20)
[2020-05-27] MEDS ORDERED: Bacitracin Zinc Ointment 30 gm TUBE ONE (12:33)
[2020-05-27 12:41] LABS: Fungus Stain Final report (.)
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
[2020-05-27] MEDS ORDERED: Ketorolac Tromethamine 30 MG/ML VIAL ONE (15:04)
[2020-05-27] MEDS ORDERED: PROPOFOL 200 MG/20 ML VIAL ONE (15:04)
[2020-05-27] MEDS ORDERED: Ondansetron PF 4 MG/2 ML Vial ONE (15:04)
[2020-05-27] MEDS ORDERED: Lidocaine 1% PF 5 ML VIAL ONE (15:04)
[2020-05-27] MEDS ORDERED: HYDROcodone/Acetaminophen 5/325 mg Tablet PO PRN (15:11)
[2020-05-27] MEDS: Cyclobenzaprine 10 MG TAB PO PRN (17:19)
[2020-05-27] MEDS ORDERED: Piperacillin/Tazobactam 3.375 GM in Sodium Chloride 0.9% 100 ML IVPB SCH (18:00)
[2020-05-27] MEDS: HYDROcodone/Acetaminophen 5/325 mg Tablet PO PRN (18:52)
--- NOTE | 2020-05-27 21:14 | CON ---
DATE OF CONSULTATION: 05/27/2020 HISTORY OF PRESENT ILLNESS: The patient was seen today at bedside. He is resting comfortably. He states his pain is well controlled. He denies any fevers. He denies any numbness or tingling in fingers of his right or left hand. He states that his overall pain is well controlled. He is scheduled for a planned take-back for repeat irrigation and debridement of his left elbow as well as potentially he has left ring finger stump. He asked if I could arrange the dressings over his right hand and left lower extremity as well. PHYSICAL EXAMINATION: The patient is resting comfortably on bed. Left upper extremity is well bandaged and there is a VAC dressing in place over the left elbow. There is a splint overlying the ulnar aspect of the left hand. His right hand dressing is intact and there is left lower extremity dressing appreciated. Culture and sensitivities thus far are growing out bacteria, enterobacter and streptococcal species, which are susceptible to Zosyn. ASSESSMENT AND PLAN: Plan is to take-back for VAC dressing exchange as well as further debridement of soft tissue and washout of left elbow and potentially left ring finger as well as dressing changes to the left upper extremity, right hand and left lower extremity. All risks and goals associated with today's procedure were discussed by me with the patient, he voiced understanding and agreed to proceed. He will continue to remain admitted to the Trauma Service. We will hopefully plan on discharging him sometime next week if he is able to tolerate VAC dressings as an outpatient basis. He may follow up with the Wound Clinic upon discharge for VAC dressing changes every 3 days. He will eventually need some type of skin graft, however, the patient is adamant about not using his own skin for his skin graft. Job ID: [id number]
[2020-05-27] MEDS: Piperacillin/Tazobactam 3.375 GM in Sodium Chloride 0.9% 100 ML IVPB SCH (21:33)
[2020-05-28] MEDS: traMADol HCl 50 MG TAB PO SCH ×5 (00:02→23:20)
[2020-05-28] MEDS: Acetaminophen 325 MG TAB PO SCH ×5 (00:03→23:20)
[2020-05-28] MEDS: Ibuprofen 200 MG TAB PO SCH ×2 (00:03→05:38)
[2020-05-28] MEDS: HYDROcodone/Acetaminophen 5/325 mg Tablet PO PRN ×2 (01:29→07:24)
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
[2020-05-28] MEDS: Piperacillin/Tazobactam 3.375 GM in Sodium Chloride 0.9% 100 ML IVPB SCH (03:37)
[2020-05-28] MEDS: Cyclobenzaprine 10 MG TAB PO PRN ×2 (03:59→17:47)
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
[2020-05-28 08:42] LABS: Chloride 107 mmol/L (98-107); Potassium 5.8 mmol/L (3.5-5.1); Sodium 139 mmol/L (136-145)
[2020-05-28 08:52] LABS: BUN (Urea Nitrogen) 16 mg/dL (8.9-20.6)
[2020-05-28 08:53] LABS: Magnesium 1.9 mg/dL (1.6-2.6)
[2020-05-28 09:00] LABS: Anion Gap 18 mmol/L (10-20); Calc. Creatinine Clearance 130 mL/min (70-130); Calcium 8.5 mg/dL (7.8-10.44); Carbon Dioxide 20 mmol/L (22-29); Estimated GFR-MDRD 70; Glucose 111 mg/dL (70-105); Phosphorus 3.7 mg/dL (2.3-4.7)
[2020-05-28] MEDS ORDERED: Lisinopril 20 MG TAB PO SCH ×2 (09:00)
[2020-05-28] MEDS ORDERED: Amoxicillin/Potassium Clav 875 MG TAB PO SCH ×2 (09:00→21:00)
[2020-05-28] MEDS: Lisinopril 20 MG TAB PO SCH (09:27)
[2020-05-28] MEDS: Senokot S 8.6-50 MG TAB PO SCH ×2 (09:34→20:31)
[2020-05-28] MEDS: Folic Acid 1 MG TAB PO SCH (09:35)
[2020-05-28] MEDS: Famotidine 20 MG TAB PO SCH ×2 (09:35→20:32)
[2020-05-28] MEDS: Gabapentin 300 MG CAP PO SCH ×3 (09:35→20:31)
[2020-05-28] MEDS: Multivitamin W/ Minerals 1 TAB PO SCH (09:35)
[2020-05-28] MEDS: Saccharomyces boulardii 250 MG CAP PO SCH ×2 (09:35→20:32)
[2020-05-28] MEDS: Thiamine 100 MG TAB PO SCH (09:35)
[2020-05-28] MEDS: Oxazepam 10 MG CAP PO SCH ×2 (09:35→20:32)
[2020-05-28] MEDS: Heparin 5,000 UNITS/ML VIAL SC SCH ×3 (09:36→20:32)
[2020-05-28] MEDS: Polyethylene Glycol 3350 17 GM Packet PO SCH (09:37)
[2020-05-28] MEDS: Bacitracin 1 PK TOP SCH ×3 (09:37→20:32)
[2020-05-28] MEDS: Silver Sulfadiazine 50 GM TUBE TOP SCH ×2 (10:10→20:33)
[2020-05-28 11:16] LABS: Band 8 % (5-11); Eosinophils 1 % (0-10); Hemoglobin 11.3 g/dL (14.0-18.0); Lymphocytes 39 % (21-51); MDiff Complete? YES; Mean Corpuscular HGB CONC 32.1 g/dL (32.0-36.0); Mean Corpuscular Hemoglobin 31.6 pg (27.0-31.0); Mean Corpuscular Volume 98.4 fL (78.0-98.0); Mean Platelet Volume 6.9 fL (7.4-10.4); Metamyelocyte 1 % (0-0); Monocytes 7 % (0-10); Myelocyte 3 % (0-0); Neutrophil 41 % (42-75); Platelet Count 343 thou/uL (130-400); RBC Distribution Width 12.1 % (11.5-14.5); RBC Morphology Normal; Red Blood Cell (RBC) Count 3.57 mill/uL (4.70-6.10); White Blood Cell (WBC) Count 5.6 thou/uL (4.8-10.8)
[2020-05-28] MEDS: HYDROcodone/Acetaminophen 10/325 mg Tablet PO PRN ×2 (14:35→20:34)
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
[2020-05-28] MEDS: Ibuprofen 600 MG TAB PO PRN (16:42)
[2020-05-28] MEDS: Piperacillin/Tazobactam 4.5 GM in Sodium Chloride 0.9% 100 ML IVPB SCH (20:33)
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
[2020-05-29] MEDS: Cyclobenzaprine 10 MG TAB PO PRN ×2 (02:41→15:46)
[2020-05-29] MEDS: HYDROcodone/Acetaminophen 10/325 mg Tablet PO PRN ×4 (02:41→21:41)
[2020-05-29] MEDS: Piperacillin/Tazobactam 4.5 GM in Sodium Chloride 0.9% 100 ML IVPB SCH ×3 (05:45→21:42)
[2020-05-29] MEDS: Acetaminophen 325 MG TAB PO SCH ×3 (05:45→17:56)
[2020-05-29] MEDS: traMADol HCl 50 MG TAB PO SCH ×3 (05:45→17:57)
[2020-05-29 07:26] LABS: #Basophils 0.1 thou/uL (0.0-0.2); #Eosinphils 0.3 thou/uL (0.0-0.7); #Lymphocytes 2.2 thou/uL (1.20-3.40); #Monocytes 0.5 thou/uL (0.11-0.59); #Neutrophils 3.3 thou/uL (1.40-6.50); %Basophils 1.1 % (0.0-1.0); %Lymphocytes 35.2 % (21.0-51.0); %Monocytes 7.1 % (0.0-10.0); %Neutrophils 52.5 % (42.0-75.0); Hemoglobin 11.5 g/dL (14.0-18.0); Mean Corpuscular HGB CONC 32.5 g/dL (32.0-36.0); Mean Corpuscular Hemoglobin 31.7 pg (27.0-31.0); Mean Corpuscular Volume 97.5 fL (78.0-98.0); Mean Platelet Volume 6.7 fL (7.4-10.4); Platelet Count 376 thou/uL (130-400); RBC Distribution Width 12.4 % (11.5-14.5); Red Blood Cell (RBC) Count 3.62 mill/uL (4.70-6.10); White Blood Cell (WBC) Count 6.3 thou/uL (4.8-10.8)
[2020-05-29 07:48] LABS: Anion Gap 13 mmol/L (10-20); BUN (Urea Nitrogen) 17 mg/dL (8.9-20.6); Calc. Creatinine Clearance 123 mL/min (70-130); Calcium 9.2 mg/dL (7.8-10.44); Carbon Dioxide 28 mmol/L (22-29); Chloride 101 mmol/L (98-107); Estimated GFR-MDRD 66; Glucose 114 mg/dL (70-105); Magnesium 1.9 mg/dL (1.6-2.6); Phosphorus 3.8 mg/dL (2.3-4.7); Potassium 4.5 mmol/L (3.5-5.1); Sodium 137 mmol/L (136-145)
[2020-05-29] MEDS: Oxazepam 10 MG CAP PO SCH ×2 (08:13→21:40)
[2020-05-29] MEDS: Gabapentin 300 MG CAP PO SCH ×3 (08:13→21:41)
[2020-05-29] MEDS: Heparin 5,000 UNITS/ML VIAL SC SCH ×3 (08:16→21:42)
[2020-05-29] MEDS: Bacitracin 1 PK TOP SCH ×3 (08:49→21:42)
[2020-05-29] MEDS: Amlodipine 10 MG TAB PO SCH (08:49)
[2020-05-29] MEDS: Ibuprofen 600 MG TAB PO PRN ×2 (11:21→21:41)
[2020-05-29] MEDS: Senokot S 8.6-50 MG TAB PO SCH ×2 (11:25→21:42)
[2020-05-29] MEDS: Thiamine 100 MG TAB PO SCH (11:26)
[2020-05-29] MEDS: Famotidine 20 MG TAB PO SCH ×2 (11:26→21:40)
[2020-05-29] MEDS: Saccharomyces boulardii 250 MG CAP PO SCH ×2 (11:26→21:40)
[2020-05-29] MEDS: Multivitamin W/ Minerals 1 TAB PO SCH (11:27)
[2020-05-29] MEDS: Folic Acid 1 MG TAB PO SCH (11:27)
[2020-05-29] MEDS: Polyethylene Glycol 3350 17 GM Packet PO SCH (11:29)
[2020-05-29] MEDS: Silver Sulfadiazine 50 GM TUBE TOP SCH ×2 (12:22→21:42)
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
[2020-05-30] MEDS: Acetaminophen 325 MG TAB PO SCH ×5 (00:02→23:32)
[2020-05-30] MEDS: traMADol HCl 50 MG TAB PO SCH ×5 (00:02→23:32)
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
[2020-05-30] MEDS: Piperacillin/Tazobactam 4.5 GM in Sodium Chloride 0.9% 100 ML IVPB SCH ×3 (05:05→21:35)
[2020-05-30] MEDS: Folic Acid 1 MG TAB PO SCH (08:15)
[2020-05-30] MEDS: Saccharomyces boulardii 250 MG CAP PO SCH ×2 (08:15→21:36)
[2020-05-30] MEDS: Gabapentin 300 MG CAP PO SCH ×3 (08:15→21:36)
[2020-05-30] MEDS: Amlodipine 10 MG TAB PO SCH (08:15)
[2020-05-30] MEDS: Bacitracin 1 PK TOP SCH ×3 (08:15→21:38)
[2020-05-30] MEDS: Multivitamin W/ Minerals 1 TAB PO SCH (08:15)
[2020-05-30] MEDS: Oxazepam 10 MG CAP PO SCH ×2 (08:16→21:36)
[2020-05-30] MEDS: Famotidine 20 MG TAB PO SCH ×2 (08:16→21:36)
[2020-05-30] MEDS: Heparin 5,000 UNITS/ML VIAL SC SCH ×3 (08:16→21:36)
[2020-05-30] MEDS: Thiamine 100 MG TAB PO SCH (08:16)
[2020-05-30] MEDS: Polyethylene Glycol 3350 17 GM Packet PO SCH (08:17)
[2020-05-30] MEDS: Silver Sulfadiazine 50 GM TUBE TOP SCH ×2 (08:17→21:38)
[2020-05-30] MEDS: Senokot S 8.6-50 MG TAB PO SCH ×2 (08:17→21:38)
[2020-05-30 09:57] LABS: #Basophils 0.1 thou/uL (0.0-0.2); #Eosinphils 0.3 thou/uL (0.0-0.7); #Lymphocytes 2.7 thou/uL (1.20-3.40); #Monocytes 0.5 thou/uL (0.11-0.59); #Neutrophils 4.4 thou/uL (1.40-6.50); %Basophils 0.7 % (0.0-1.0); %Eosinophils 3.5 % (0.0-10.0); %Lymphocytes 34.2 % (21.0-51.0); %Monocytes 6.6 % (0.0-10.0); %Neutrophils 55.1 % (42.0-75.0); Hemoglobin 11.8 g/dL (14.0-18.0); Mean Corpuscular HGB CONC 33.1 g/dL (32.0-36.0); Mean Corpuscular Hemoglobin 31.7 pg (27.0-31.0); Mean Corpuscular Volume 95.8 fL (78.0-98.0); Platelet Count 466 thou/uL (130-400); RBC Distribution Width 12.3 % (11.5-14.5); White Blood Cell (WBC) Count 7.9 thou/uL (4.8-10.8)
[2020-05-30 10:20] LABS: Anion Gap 10 mmol/L (10-20); BUN (Urea Nitrogen) 18 mg/dL (8.9-20.6); Calc. Creatinine Clearance 107 mL/min (70-130); Calcium 9.8 mg/dL (7.8-10.44); Carbon Dioxide 31 mmol/L (22-29); Chloride 99 mmol/L (98-107); Estimated GFR-MDRD 56; Glucose 127 mg/dL (70-105); Magnesium 2.1 mg/dL (1.6-2.6); Potassium 4.3 mmol/L (3.5-5.1); Sodium 136 mmol/L (136-145)
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
[2020-05-30] MEDS: Sodium Chloride 0.9% 1,000 ML IV SCH (21:36)
[2020-05-30] MEDS: HYDROcodone/Acetaminophen 10/325 mg Tablet PO PRN (21:36)
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
[2020-05-31] MEDS: HYDROcodone/Acetaminophen 10/325 mg Tablet PO PRN ×2 (03:50→10:16)
[2020-05-31 05:04] LABS: #Basophils 0.1 thou/uL (0.0-0.2); #Eosinphils 0.3 thou/uL (0.0-0.7); #Lymphocytes 2.5 thou/uL (1.20-3.40); #Monocytes 0.5 thou/uL (0.11-0.59); #Neutrophils 4.2 thou/uL (1.40-6.50); %Basophils 0.8 % (0.0-1.0); %Eosinophils 3.6 % (0.0-10.0); %Lymphocytes 33.1 % (21.0-51.0); %Monocytes 6.3 % (0.0-10.0); %Neutrophils 56.2 % (42.0-75.0); Hemoglobin 11.9 g/dL (14.0-18.0); Mean Corpuscular HGB CONC 32.6 g/dL (32.0-36.0); Mean Corpuscular Hemoglobin 31.4 pg (27.0-31.0); Mean Corpuscular Volume 96.3 fL (78.0-98.0); Mean Platelet Volume 6.6 fL (7.4-10.4); Platelet Count 474 thou/uL (130-400); RBC Distribution Width 12.3 % (11.5-14.5); Red Blood Cell (RBC) Count 3.79 mill/uL (4.70-6.10); White Blood Cell (WBC) Count 7.4 thou/uL (4.8-10.8)
[2020-05-31] MEDS: traMADol HCl 50 MG TAB PO SCH ×4 (05:13→23:36)
[2020-05-31] MEDS: Piperacillin/Tazobactam 4.5 GM in Sodium Chloride 0.9% 100 ML IVPB SCH (05:13)
[2020-05-31] MEDS: Acetaminophen 325 MG TAB PO SCH ×4 (05:13→23:36)
[2020-05-31] MEDS: Sodium Chloride 0.9% 1,000 ML IV SCH ×4 (05:14→21:05)
[2020-05-31 05:23] LABS: Anion Gap 12 mmol/L (10-20); BUN (Urea Nitrogen) 20 mg/dL (8.9-20.6); Calc. Creatinine Clearance 100 mL/min (70-130); Calcium 9.5 mg/dL (7.8-10.44); Carbon Dioxide 27 mmol/L (22-29); Chloride 101 mmol/L (98-107); Estimated GFR-MDRD 51; Glucose 118 mg/dL (70-105); Phosphorus 3.4 mg/dL (2.3-4.7); Potassium 4.3 mmol/L (3.5-5.1); Sodium 136 mmol/L (136-145)
[2020-05-31] MEDS ORDERED: Lidocaine 1% w/Epinephrine 1:100K 20 ML VIAL ONE (07:12)
[2020-05-31] MEDS ORDERED: Bupivacaine 0.25% HCL 30 ML VIAL ONE (07:12)
[2020-05-31] MEDS ORDERED: Bupivacaine/Epinephrine 0.25% 30 ML VIAL ONE (07:23)
[2020-05-31] MEDS ORDERED: Midazolam HCl 2 mg/2 ml Vial ONE (07:46)
[2020-05-31] MEDS ORDERED: Fentanyl 100 MCG/2 ML VIAL ONE ×2 (07:46→09:28)
[2020-05-31] MEDS: Famotidine 20 MG TAB PO SCH ×2 (08:03→20:10)
[2020-05-31] MEDS: Gabapentin 300 MG CAP PO SCH ×3 (08:03→20:14)
[2020-05-31] MEDS: Folic Acid 1 MG TAB PO SCH (08:03)
[2020-05-31] MEDS: Amlodipine 5 MG TAB PO SCH (08:03)
[2020-05-31] MEDS: Bacitracin 1 PK TOP SCH ×3 (08:03→20:09)
[2020-05-31] MEDS: Multivitamin W/ Minerals 1 TAB PO SCH (08:04)
[2020-05-31] MEDS: Saccharomyces boulardii 250 MG CAP PO SCH ×2 (08:04→20:10)
[2020-05-31] MEDS: Senokot S 8.6-50 MG TAB PO SCH ×2 (08:04→20:10)
[2020-05-31] MEDS: Heparin 5,000 UNITS/ML VIAL SC SCH ×3 (08:04→20:16)
[2020-05-31] MEDS: Polyethylene Glycol 3350 17 GM Packet PO SCH (08:04)
[2020-05-31] MEDS: Oxazepam 10 MG CAP PO SCH ×2 (08:04→20:10)
[2020-05-31] MEDS: Silver Sulfadiazine 50 GM TUBE TOP SCH ×2 (08:04→20:11)
[2020-05-31] MEDS: Thiamine 100 MG TAB PO SCH (08:04)
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
[2020-05-31] MEDS ORDERED: Bacitracin Zinc Ointment 30 gm TUBE ONE (08:47)
[2020-05-31] MEDS ORDERED: Dexamethasone 20 MG/5 ML VIAL ONE (09:16)
[2020-05-31] MEDS ORDERED: Lidocaine 1% PF 5 ML VIAL ONE (09:16)
[2020-05-31] MEDS ORDERED: PROPOFOL 200 MG/20 ML VIAL ONE (09:16)
[2020-05-31] MEDS ORDERED: Ondansetron PF 4 MG/2 ML Vial ONE (09:16)
[2020-05-31] MEDS ORDERED: Ondansetron HCl/PF 4 MG/2 ML Vial IVP PRN (09:19)
[2020-05-31] MEDS ORDERED: HYDROmorphone 2 MG/ML VIAL SLOW IVP PRN (09:19)
[2020-05-31] MEDS ORDERED: Promethazine HCl 25 MG/ML VIAL IM PRN (09:19)
[2020-05-31] MEDS ORDERED: Promethazine HCl 25 MG/ML VIAL SLOW IVP PRN (09:19)
[2020-05-31] MEDS ORDERED: Morphine 4 MG/ML VIAL SLOW IVP PRN (11:02)
[2020-05-31] MEDS ORDERED: HYDROcodone/Acetaminophen 7.5/325 mg Tablet PO PRN (11:04)
[2020-05-31] MEDS: Piperacillin/Tazobactam 3.375 GM in Sodium Chloride 0.9% 100 ML IVPB SCH ×3 (12:00→23:37)
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
[2020-06-01] MEDS: Sodium Chloride 0.9% 1,000 ML IV SCH ×2 (02:41→11:55)
[2020-06-01] MEDS: traMADol HCl 50 MG TAB PO SCH ×4 (05:02→23:02)
[2020-06-01] MEDS: Acetaminophen 325 MG TAB PO SCH ×4 (05:02→23:03)
[2020-06-01] MEDS: Piperacillin/Tazobactam 3.375 GM in Sodium Chloride 0.9% 100 ML IVPB SCH ×4 (05:03→23:02)
[2020-06-01 07:55] LABS: #Basophils 0.1 thou/uL (0.0-0.2); #Eosinphils 0.1 thou/uL (0.0-0.7); #Lymphocytes 2.4 thou/uL (1.20-3.40); #Monocytes 0.4 thou/uL (0.11-0.59); #Neutrophils 4.2 thou/uL (1.40-6.50); %Basophils 1.1 % (0.0-1.0); %Eosinophils 1.8 % (0.0-10.0); %Lymphocytes 33.3 % (21.0-51.0); %Monocytes 5.1 % (0.0-10.0); %Neutrophils 58.9 % (42.0-75.0); Mean Corpuscular HGB CONC 32.9 g/dL (32.0-36.0); Mean Corpuscular Hemoglobin 31.9 pg (27.0-31.0); Mean Platelet Volume 6.6 fL (7.4-10.4); Platelet Count 490 thou/uL (130-400); RBC Distribution Width 12.3 % (11.5-14.5); Red Blood Cell (RBC) Count 3.46 mill/uL (4.70-6.10); White Blood Cell (WBC) Count 7.2 thou/uL (4.8-10.8)
[2020-06-01] MEDS: Polyethylene Glycol 3350 17 GM Packet PO SCH (07:58)
[2020-06-01] MEDS: Gabapentin 300 MG CAP PO SCH ×3 (08:02→20:12)
[2020-06-01] MEDS: Senokot S 8.6-50 MG TAB PO SCH ×2 (08:02→20:12)
[2020-06-01] MEDS: Oxazepam 10 MG CAP PO SCH ×2 (08:02→20:11)
[2020-06-01] MEDS: Folic Acid 1 MG TAB PO SCH (08:03)
[2020-06-01] MEDS: Amlodipine 5 MG TAB PO SCH (08:03)
[2020-06-01] MEDS: Thiamine 100 MG TAB PO SCH (08:03)
[2020-06-01] MEDS: Famotidine 20 MG TAB PO SCH ×2 (08:03→20:11)
[2020-06-01] MEDS: Saccharomyces boulardii 250 MG CAP PO SCH ×2 (08:03→20:12)
[2020-06-01] MEDS: Multivitamin W/ Minerals 1 TAB PO SCH (08:03)
[2020-06-01] MEDS: Heparin 5,000 UNITS/ML VIAL SC SCH ×3 (08:03→20:10)
[2020-06-01] MEDS: Bacitracin 1 PK TOP SCH ×3 (08:04→20:10)
[2020-06-01] MEDS: Silver Sulfadiazine 50 GM TUBE TOP SCH ×2 (08:05→20:13)
[2020-06-01 08:22] LABS: Anion Gap 13 mmol/L (10-20); BUN (Urea Nitrogen) 16 mg/dL (8.9-20.6); Calc. Creatinine Clearance 127 mL/min (70-130); Calcium 8.7 mg/dL (7.8-10.44); Carbon Dioxide 24 mmol/L (22-29); Chloride 103 mmol/L (98-107); Estimated GFR-MDRD 68; Glucose 123 mg/dL (70-105); Phosphorus 2.4 mg/dL (2.3-4.7); Potassium 3.9 mmol/L (3.5-5.1); Sodium 136 mmol/L (136-145)
[2020-06-01] MEDS ORDERED: ALPRAZolam 1 MG TAB PO PRN (11:15)
[2020-06-01] MEDS: HYDROcodone/Acetaminophen 7.5/325 mg Tablet PO PRN ×2 (13:33→20:13)
[2020-06-01] MEDS: Cyclobenzaprine 10 MG TAB PO PRN (14:45)
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
[2020-06-02] MEDS: Piperacillin/Tazobactam 3.375 GM in Sodium Chloride 0.9% 100 ML IVPB SCH ×4 (05:26→23:01)
[2020-06-02] MEDS: Acetaminophen 325 MG TAB PO SCH ×4 (05:27→23:01)
[2020-06-02] MEDS: traMADol HCl 50 MG TAB PO SCH ×4 (05:27→23:01)
[2020-06-02 07:12] LABS: Anion Gap 11 mmol/L (10-20); BUN (Urea Nitrogen) 16 mg/dL (8.9-20.6); Calc. Creatinine Clearance 129 mL/min (70-130); Calcium 9.1 mg/dL (7.8-10.44); Carbon Dioxide 28 mmol/L (22-29); Chloride 104 mmol/L (98-107); Estimated GFR-MDRD 69; Glucose 108 mg/dL (70-105); Magnesium 1.8 mg/dL (1.6-2.6); Phosphorus 3.1 mg/dL (2.3-4.7); Sodium 139 mmol/L (136-145)
[2020-06-02] MEDS: Thiamine 100 MG TAB PO SCH (08:29)
[2020-06-02] MEDS: HYDROcodone/Acetaminophen 7.5/325 mg Tablet PO PRN ×3 (08:29→21:15)
[2020-06-02] MEDS: Famotidine 20 MG TAB PO SCH ×2 (08:30→19:46)
[2020-06-02] MEDS: Oxazepam 10 MG CAP PO SCH ×2 (08:30→19:45)
[2020-06-02] MEDS: Folic Acid 1 MG TAB PO SCH (08:30)
[2020-06-02] MEDS: Multivitamin W/ Minerals 1 TAB PO SCH (08:30)
[2020-06-02] MEDS: Amlodipine 5 MG TAB PO SCH (08:31)
[2020-06-02] MEDS: Bacitracin 1 PK TOP SCH ×3 (08:31→19:46)
[2020-06-02] MEDS: Gabapentin 300 MG CAP PO SCH ×3 (08:32→19:46)
[2020-06-02] MEDS: Polyethylene Glycol 3350 17 GM Packet PO SCH (08:32)
[2020-06-02] MEDS: Heparin 5,000 UNITS/ML VIAL SC SCH ×3 (08:32→19:45)
[2020-06-02] MEDS: Senokot S 8.6-50 MG TAB PO SCH ×2 (08:33→19:46)
[2020-06-02] MEDS: Saccharomyces boulardii 250 MG CAP PO SCH ×2 (08:33→19:46)
[2020-06-02] MEDS: Silver Sulfadiazine 50 GM TUBE TOP SCH ×2 (12:17→19:46)
[2020-06-02] MEDS: Cyclobenzaprine 10 MG TAB PO PRN ×2 (13:32→23:01)
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
[2020-06-03] MEDS: Piperacillin/Tazobactam 3.375 GM in Sodium Chloride 0.9% 100 ML IVPB SCH ×5 (06:04→23:39)
[2020-06-03] MEDS: traMADol HCl 50 MG TAB PO SCH ×4 (06:05→23:37)
[2020-06-03] MEDS: Acetaminophen 325 MG TAB PO SCH ×4 (06:05→23:37)
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
[2020-06-03] MEDS: Oxazepam 10 MG CAP PO SCH ×2 (08:59→19:59)
[2020-06-03] MEDS: Multivitamin W/ Minerals 1 TAB PO SCH (09:00)
[2020-06-03] MEDS: Amlodipine 5 MG TAB PO SCH (09:00)
[2020-06-03] MEDS: Gabapentin 300 MG CAP PO SCH ×3 (09:00→19:47)
[2020-06-03] MEDS: Saccharomyces boulardii 250 MG CAP PO SCH ×2 (09:00→19:47)
[2020-06-03] MEDS: Thiamine 100 MG TAB PO SCH (09:00)
[2020-06-03] MEDS: Folic Acid 1 MG TAB PO SCH (09:00)
[2020-06-03] MEDS: Bacitracin 1 PK TOP SCH ×3 (09:00→19:48)
[2020-06-03] MEDS: Famotidine 20 MG TAB PO SCH ×2 (09:00→19:47)
[2020-06-03] MEDS: Senokot S 8.6-50 MG TAB PO SCH (09:01)
[2020-06-03] MEDS: Polyethylene Glycol 3350 17 GM Packet PO SCH (09:01)
[2020-06-03] MEDS: Heparin 5,000 UNITS/ML VIAL SC SCH ×3 (09:01→19:49)
[2020-06-03] MEDS: Silver Sulfadiazine 50 GM TUBE TOP SCH ×2 (09:01→19:50)
[2020-06-03] MEDS ORDERED: Polyethylene Glycol 3350 17 GM Packet PO PRN (09:04)
[2020-06-03] MEDS ORDERED: Senokot S 8.6-50 MG TAB PO PRN (09:05)
[2020-06-03] MEDS ORDERED: ALPRAZolam 0.5 MG TAB PO PRN (09:15)
[2020-06-03] MEDS: HYDROcodone/Acetaminophen 7.5/325 mg Tablet PO PRN (09:43)
[2020-06-03] MEDS ORDERED: Lidocaine 1% PF 5 ML VIAL ONE (10:42)
[2020-06-03] MEDS ORDERED: PROPOFOL 200 MG/20 ML VIAL ONE (10:42)
[2020-06-03] MEDS ORDERED: Dexamethasone 20 MG/5 ML VIAL ONE (10:42)
[2020-06-03] MEDS ORDERED: Ondansetron PF 4 MG/2 ML Vial ONE (10:42)
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
[2020-06-03] MEDS ORDERED: Bacitracin Zinc Ointment 30 gm TUBE ONE (14:48)
[2020-06-03] MEDS ORDERED: Bupivacaine/Epinephrine 0.25% 30 ML VIAL ONE (14:48)
[2020-06-03] MEDS ORDERED: Sodium Chloride 0.9% 0 ML ONE (14:48)
[2020-06-03] MEDS: Sodium Chloride 0.9% 1,000 ML IV SCH ×2 (14:48→23:53)
[2020-06-03] MEDS ORDERED: Lidocaine 1% w/Epinephrine 1:100K 20 ML VIAL ONE (14:48)
[2020-06-03] MEDS ORDERED: Midazolam HCl 2 mg/2 ml Vial ONE (15:39)
[2020-06-03] MEDS ORDERED: Fentanyl 100 MCG/2 ML VIAL ONE ×2 (15:39→17:22)
[2020-06-03] MEDS ORDERED: Morphine 4 MG/ML VIAL SLOW IVP PRN (18:27)
[2020-06-03] MEDS ORDERED: HYDROcodone/Acetaminophen 5/325 mg Tablet PO PRN ×2 (18:30)
[2020-06-03 23:24] VITALS: TEMP 97.9
[2020-06-04] MEDS: Piperacillin/Tazobactam 3.375 GM in Sodium Chloride 0.9% 100 ML IVPB SCH (05:06)
[2020-06-04] MEDS: Acetaminophen 325 MG TAB PO SCH (05:07)
[2020-06-04] MEDS: traMADol HCl 50 MG TAB PO SCH (05:07)
[2020-06-04] MEDS: Sodium Chloride 0.9% 1,000 ML IV SCH (05:08)
--- NOTE | 2020-06-04 05:44 | PRG ---
DATE OF SERVICE: 06/03/2020 This patient was seen during morning rounds. SUBJECTIVE: The patient was lying comfortably in bed with no complaints. He states his pain control is good. He was looking forward to his wound dressing change today with the hope of going home, but is excited that Dr. Villagran felt a skin graft would be possible today. He had some concerns about using skin obtained from himself rather than a donor graft, but after discussion, felt it would be the safer option. OBJECTIVE: VITAL SIGNS: He has been afebrile. His pulse has been normal, ranging from 71 to 85. His respirations have been normal, ranging from 16 to 18. His oxygen saturation has been normal, ranging from 92% to 98% on room air. His blood pressures have continued to be elevated ranging from systolic of 121 to 151; and diastolic 78 to 93. GENERAL: Lying comfortably in bed, awake and alert, in no acute distress. HEENT: Healing abrasions on his forehead bilaterally. RESPIRATORY: Equal rise and fall of chest, no respiratory distress. MUSCULOSKELETAL: He is able to move all 4 extremities well. EXTREMITIES: His right and left hands are bandaged. His left elbow was bandaged and attached to a wound VAC. His left knee was also bandaged. DIAGNOSTIC LABORATORY DATA: None to discuss today. Bacterial culture taken from his elbow wound on 05/31 has a preliminary reading of negative growth. PLAN: The plan today is for Dr. Villagran to take the patient back to receive a skin graft on his left elbow. His lactulose, MiraLAX, and Senna were discontinued today due to the patient having daily bowel movements despite declining those medications. The patient will be ready for discharge once Dr. Villagran feels it is appropriate for him to go home. At that point, the plan currently is for him to be discharged home with outpatient wound care. We will monitor his pain tomorrow after this new surgery. Dr. Hameed will be contacted again to ensure he still feels it is appropriate for Mr. Sahu to go home without outpatient antibiotics. Dr. Ng evaluated the patient and agreed to this plan. Job ID: [id number]
[2020-06-04 07:48] VITALS: BP 126/77
[2020-06-04] MEDS: Famotidine 20 MG TAB PO SCH (08:27)
[2020-06-04] MEDS: Oxazepam 10 MG CAP PO SCH (08:27)
[2020-06-04] MEDS: Folic Acid 1 MG TAB PO SCH (08:27)
[2020-06-04] MEDS: Gabapentin 300 MG CAP PO SCH (08:27)
[2020-06-04] MEDS: Bacitracin 1 PK TOP SCH (08:28)
[2020-06-04] MEDS: Saccharomyces boulardii 250 MG CAP PO SCH (08:28)
[2020-06-04] MEDS: Heparin 5,000 UNITS/ML VIAL SC SCH ×2 (08:28→08:38)
[2020-06-04] MEDS: Thiamine 100 MG TAB PO SCH (08:28)
[2020-06-04] MEDS: Multivitamin W/ Minerals 1 TAB PO SCH (08:28)
[2020-06-04] MEDS: Silver Sulfadiazine 50 GM TUBE TOP SCH (08:29)
[2020-06-04] MEDS: Amlodipine 5 MG TAB PO SCH ×2 (08:31→08:38)
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
== END 2020-06-04 12:25 | disposition home or self-care (01) | DRG 904 ==
LOC: ERS 21:40 → SJJU 05-22 00:09 → OBSVTOIN 05-22 03:39
PROVIDERS: ADMIT Specialist; ATTEND Specialist
PROC: 0X6W0Z0 Detachment at Left Little Finger, Complete, Open Approach (ICD-10-PCS; 2020-05-23)
PROC: 0KB80ZZ Excision of Left Upper Arm Muscle, Open Approach (ICD-10-PCS; 2020-05-23)
PROC: 0KQ80ZZ Repair Left Upper Arm Muscle, Open Approach (ICD-10-PCS; 2020-05-23)
PROC: 0KD80ZZ Extraction of Left Upper Arm Muscle, Open Approach (ICD-10-PCS; 2020-05-25)
PROC: 0R9X0ZZ Drainage of Left Finger Phalangeal Joint, Open Approach (ICD-10-PCS; 2020-05-25)
PROC: 0HQ0XZZ Repair Scalp Skin, External Approach (ICD-10-PCS; 2020-05-27)
PROC: 0KB70ZZ Excision of Right Upper Arm Muscle, Open Approach (ICD-10-PCS; 2020-05-27)
PROC: 0HDCXZZ Extraction of Left Upper Arm Skin, External Approach (ICD-10-PCS; 2020-05-31)
PROC: 8E09XY8 Suture Removal from Head and Neck Region (ICD-10-PCS; 2020-05-31)
PROC: 0HRCXK3 Replacement of Left Upper Arm Skin with Nonautologous Tissue Substitute, Full Thickness, External Approach (ICD-10-PCS; principal; 2020-06-03)
PROC: 0R9X0ZZ Drainage of Left Finger Phalangeal Joint, Open Approach (ICD-10-PCS; 2020-06-03)
DX: S68.115A Complete traumatic metacarpophalangeal amputation of left ring finger, initial encounter (principal); S02.40FA Zygomatic fracture, left side, initial encounter for closed fracture; S06.0X9A Concussion with loss of consciousness of unspecified duration, initial encounter; S66.921A Laceration of unspecified muscle, fascia and tendon at wrist and hand level, right hand, initial encounter; N17.9 Acute kidney failure, unspecified; I96 Gangrene, not elsewhere classified; S51.012A Laceration without foreign body of left elbow, initial encounter; S62.627A Displaced fracture of middle phalanx of left little finger, initial encounter for closed fracture; F10.129 Alcohol abuse with intoxication, unspecified; V86.59XA Driver of other special all-terrain or other off-road motor vehicle injured in nontraffic accident, initial encounter; S02.2XXA Fracture of nasal bones, initial encounter for closed fracture; E87.6 Hypokalemia; E83.39 Other disorders of phosphorus metabolism; Z20.828 Contact with and (suspected) exposure to other viral communicable diseases; E86.0 Dehydration; S01.01XA Laceration without foreign body of scalp, initial encounter; S61.011A Laceration without foreign body of right thumb without damage to nail, initial encounter; S05.11XA Contusion of eyeball and orbital tissues, right eye, initial encounter; Y90.4 Blood alcohol level of 80-99 mg/100 ml; E87.5 Hyperkalemia
CPT/HCPCS: 12005; 12015; 26770; 36415; 70450; 70486; 71045; 71260; 72125; 74177; 76000; 80048; 80053; 80306; 80307; 81003; 82550; 83605; 83735; 84100; 84484; 85007; 85025; 85027; 85610; 85730; 86850; 86900; 86901; 87070; 87077; 87102; 87116; 87186; 87205; 87206; 87635; 88305; 88311; 90471; 90715; 93005; 96361; 96365; 96375; 96376; 99156; 99157; 99292; G0378; G0390; J0690; J0692; J1100; J1160; J1170; J1644; J1885; J2001; J2060; J2250; J2270; J2405; J2543; J2704; J3010; J3475; J3490; J7030; J7050; Q9967; S0020; U0003

== ENCOUNTER 2020-06-19 11:36 | Emergency (ER) | payer OTHER | END 2020-06-19 12:47 | disposition left against medical advice (07) | LOC: ERS 11:36 | DX: Z53.21 Procedure and treatment not carried out due to patient leaving prior to being seen by health care provider (principal) ==